=== PATIENT | male | born 1975 | race Caucasian/White ===

== ENCOUNTER 2023-12-01 17:19 | Emergency (ER) | payer OTHER, MEDICARE, MEDICAID ==
[~2023-12-01] VITALS: Ht 185.4 cm; Wt 70.0 kg
[2023-12-01 18:15] LABS: Basophils # (auto) 0 10 ^3/uL (0-0.2); Basophils % (auto) 0.5 % (0.0-2.0); Eosinophils # (auto) 0.1 10 ^3/uL (0-0.8); Eosinophils % (auto) 1.9 % (0.0-7.0); Hematocrit 37.1 % (41.0-53.0); Hemoglobin 12.3 g/dL (13.5-17.5); Lymphocytes # (auto) 1.6 10 ^3/uL (0.4-5.4); Lymphocytes % (auto) 22.5 % (10.0-50.0); Mean Corpuscular Hemoglobin 31.1 pg (28.0-32.0); Mean Corpuscular Hgb Conc. 33.1 g/dL (32.0-36.0); Mean Corpuscular Volume 94.1 fL (80.0-100.0); Monocytes # (auto) 0.4 10 ^3/uL (0-1.3); Monocytes % (auto) 5.7 % (0.0-12.0); Neutrophils # (auto) 4.8 10 ^3/uL (1.6-8.6); Neutrophils % (auto) 69.4 % (37.0-80.0); Red Blood Cells 3.94 10^6/uL (4.5-5.90); Red Cell Distribution Width 14.1 % (11.8-14.3); White Blood Cell 6.9 10^3/uL (4.4-10.8)
[2023-12-01 18:29] LABS: Alanine Aminotransferase 21 U/L (7-40); Albumin 4.2 g/dL (3.2-4.8); Alkaline Phosphatase 111 U/L (46-116); Anion Gap 4 (5-15); Aspartate Aminotransferase 16 U/L (13-40); BUN/Creatinine Ratio 18.1 (10.0-20.0); Bilirubin, Total 0.4 mg/dL (0.2-1.0); Blood Urea Nitrogen 15 mg/dL (9-23); Calcium 9.7 mg/dL (8.7-10.4); Carbon Dioxide 29 mmol/L (20-30); Chloride 108 mmol/L (98-107); Glucose 116 mg/dL (74-106); Potassium 4.2 mmol/L (3.5-5.1); Sodium 141 mmol/L (136-145); Total Protein 6.8 g/dL (5.7-8.2)
[2023-12-01] MEDS ORDERED: ZOFR4T PO (20:47)
[2023-12-01 22:00] LABS: Urine Bacteria MANY /hpf (None Seen); Urine Blood 1+ /uL (Negative); Urine Clarity HAZY (Clear); Urine Color Yellow (Yellow); Urine Mucus MANY (None Seen); Urine Protein, UAD 2+ (Negative); Urine Specific Gravity 1.022 (1.001-1.035); Urine WBC 58 /hpf (0 - 3); Urine pH 6.5 (5.0-8.0)
[2023-12-01] MEDS ORDERED: CEPH500C PO (22:37)
[2023-12-02] MEDS: MORPHINE SULFATE 4 MG/ML SYR/VIAL IM ONE ×2 (00:34→10:48)
[2023-12-02] MEDS: ONDANSETRON ODT 4 MG TAB PO ONE ×2 (00:34→10:30)
[2023-12-02] MEDS: cefTRIAXone SOD 1,000 MG VL ONE (00:34)
[2023-12-02] MEDS: cefTRIAXone W LIDOCAINE 1 GM IM IM ONE (00:34)
[2023-12-02] MEDS: MORPHINE SULFATE 4 MG/ML SYR/VIAL ONE (10:47)
[2023-12-02] MEDS: ONDANSETRON HCL 4 MG/2 ML VIAL IM ONE (11:17)
[2023-12-02] MEDS: ONDANSETRON HCL 4 MG/2 ML VIAL ONE (11:18)
[2023-12-02 12:49] VITALS: BP 117/75; PULSE 68; RESP 16; TEMP 97.6; O2SAT 100
== END 2023-12-02 01:05 | disposition home or self-care (01) ==
LOC: EDBD 17:19 → ER 17:19
DX: R42 Dizziness and giddiness (principal); R51.9 Headache, unspecified; R11.10 Vomiting, unspecified; E11.9 Type 2 diabetes mellitus without complications
CPT/HCPCS: 36415; 70450; 80053; 81001; 85025; 99285; J0696; J2270; J2405; Q0162; 96372

== ENCOUNTER 2023-12-23 14:14 | Emergency (ER) | payer OTHER, MEDICARE, MEDICAID ==
[~2023-12-23 14:14] MED LIST: CEPH500C PO; ZOFR4T PO
[2023-12-23 16:09] LABS: Basophils # (auto) 0 10 ^3/uL (0-0.2); Basophils % (auto) 0.2 % (0.0-2.0); Eosinophils # (auto) 0.1 10 ^3/uL (0-0.8); Eosinophils % (auto) 0.8 % (0.0-7.0); Hematocrit 36.5 % (41.0-53.0); Hemoglobin 12.4 g/dL (13.5-17.5); Lymphocytes # (auto) 1.3 10 ^3/uL (0.4-5.4); Lymphocytes % (auto) 15.6 % (10.0-50.0); Mean Corpuscular Hgb Conc. 33.9 g/dL (32.0-36.0); Mean Corpuscular Volume 94.4 fL (80.0-100.0); Monocytes # (auto) 0.3 10 ^3/uL (0-1.3); Monocytes % (auto) 4.2 % (0.0-12.0); Neutrophils # (auto) 6.5 10 ^3/uL (1.6-8.6); Neutrophils % (auto) 79.2 % (37.0-80.0); Red Blood Cells 3.87 10^6/uL (4.5-5.90); Red Cell Distribution Width 13.7 % (11.8-14.3); White Blood Cell 8.2 10^3/uL (4.4-10.8)
[2023-12-23 16:29] LABS: Alanine Aminotransferase 21 U/L (7-40); Alkaline Phosphatase 118 U/L (46-116); Anion Gap 2 (5-15); Aspartate Aminotransferase 11 U/L (13-40); BUN/Creatinine Ratio 21.3 (10.0-20.0); Blood Urea Nitrogen 16 mg/dL (9-23); Calcium 9.3 mg/dL (8.7-10.4); Carbon Dioxide 30 mmol/L (20-30); Chloride 108 mmol/L (98-107); Glucose 143 mg/dL (74-106); Potassium 3.9 mmol/L (3.5-5.1); Sodium 140 mmol/L (136-145)
[2023-12-23 16:30] LABS: Bilirubin, Total 0.5 mg/dL (0.2-1.0); Total Protein 6.6 g/dL (5.7-8.2)
[2023-12-23 16:31] LABS: INR 0.94 (0.9-1.15); Partial Thromboplastin Time 34.7 SEC (24.5-34.5); Prothrombin Time 9.9 sec (9.3-11.8)
[2023-12-23 19:25] VITALS: PULSE 80; RESP 14; O2SAT 97
[2023-12-23] MEDS: ONDANSETRON HCL 4 MG/2 ML VIAL IV ONE (19:43)
[2023-12-23] MEDS: MORPHINE SULFATE 4 MG/ML SYR/VIAL IV ONE (19:44)
[2023-12-23 19:56] LABS: Urine Bacteria FEW /hpf (None Seen); Urine Blood 2+ /uL (Negative); Urine Clarity Clear (Clear); Urine Color Colorless (Yellow); Urine Mucus FEW (None Seen); Urine Protein, UAD 3+ (Negative); Urine Specific Gravity 1.015 (1.001-1.035); Urine Urobilinogen Normal (Negative); Urine WBC 14 /hpf (0 - 3); Urine pH 6.5 (5.0-8.0)
[2023-12-23] MEDS ORDERED: NITR-87 PO (20:13)
[2023-12-23] MEDS: cefTRIAXone 1GM/50ML D5W 50 ML IV ONE (22:39)
[2023-12-24 07:22] VITALS: PULSE 60; RESP 14; O2SAT 97
[2023-12-24 08:00] VITALS: TEMP 97.5
[2023-12-24 10:00] VITALS: BP 134/76; PULSE 72; RESP 12; O2SAT 95
== END 2023-12-24 11:34 | disposition home or self-care (01) ==
LOC: EDBD 14:14 → ER 14:14
DX: R51.9 Headache, unspecified (principal); N39.0 Urinary tract infection, site not specified; E11.9 Type 2 diabetes mellitus without complications; K21.9 Gastro-esophageal reflux disease without esophagitis; I10 Essential (primary) hypertension; Z79.899 Other long term (current) drug therapy; Z79.01 Long term (current) use of anticoagulants
CPT/HCPCS: 36415; 70450; 80053; 81001; 85025; 85610; 85730; 87086; 96365; 96375; 99285; J0696; J2270; J2405; 87088; 87186; 93005

== ENCOUNTER 2024-03-03 12:55 | Emergency (ER) | payer OTHER, MEDICAID ==
[~2024-03-03] VITALS: Ht 188 cm; Wt 102.2 kg
[~2024-03-03 12:55] MED LIST changes: +NITR-87 PO
[2024-03-03 14:00] VITALS: PULSE 99; RESP 16; O2SAT 98
[2024-03-03 15:25] LABS: Basophils # (auto) 0 10 ^3/uL (0-0.2); Basophils % (auto) 0.2 % (0.0-2.0); Eosinophils # (auto) 0.1 10 ^3/uL (0-0.8); Eosinophils % (auto) 0.8 % (0.0-7.0); Hematocrit 37.7 % (41.0-53.0); Hemoglobin 12.9 g/dL (13.5-17.5); Lymphocytes # (auto) 1.3 10 ^3/uL (0.4-5.4); Lymphocytes % (auto) 10.9 % (10.0-50.0); Mean Corpuscular Hemoglobin 31.8 pg (28.0-32.0); Mean Corpuscular Hgb Conc. 34.2 g/dL (32.0-36.0); Mean Corpuscular Volume 92.8 fL (80.0-100.0); Monocytes # (auto) 0.5 10 ^3/uL (0-1.3); Monocytes % (auto) 4.2 % (0.0-12.0); Neutrophils # (auto) 9.9 10 ^3/uL (1.6-8.6); Neutrophils % (auto) 83.9 % (37.0-80.0); Red Blood Cells 4.06 10^6/uL (4.5-5.90); Red Cell Distribution Width 12.8 % (11.8-14.3); White Blood Cell 11.8 10^3/uL (4.4-10.8)
[2024-03-03 15:44] LABS: Alanine Aminotransferase 17 U/L (7-40); Albumin 4.1 g/dL (3.2-4.8); Alkaline Phosphatase 149 U/L (46-116); Anion Gap 4 (5-15); Aspartate Aminotransferase 10 U/L (13-40); BUN/Creatinine Ratio 18.9 (10.0-20.0); Bilirubin, Total 0.4 mg/dL (0.2-1.0); Blood Urea Nitrogen 18 mg/dL (9-23); Calcium 9.9 mg/dL (8.5-10.1); Carbon Dioxide 31 mmol/L (20-30); Chloride 104 mmol/L (98-107); Glucose 231 mg/dL (74-106); Potassium 3.7 mmol/L (3.5-5.1); Sodium 139 mmol/L (136-145); Total Protein 6.8 g/dL (5.7-8.2)
[2024-03-03] MEDS: ACETAMINOPHEN 325 MG TAB PO ONE (16:10)
[2024-03-03] MEDS: SODIUM CHLORIDE 0.9% 1,000 ML IV ONE (16:14)
[2024-03-03] MEDS: fentaNYL CITRATE 100 MCG/2 ML VL IV ONE ×2 (16:29→18:05)
[2024-03-03] MEDS: ONDANSETRON HCL 4 MG/2 ML VIAL IV ONE (16:29)
[2024-03-03 16:57] LABS: Lipase 33 U/L (12-53)
[2024-03-03] MEDS: GOLYTELY 4L KIT PO ONE (18:28)
[2024-03-03 19:30] VITALS: PULSE 91; RESP 16; TEMP 98.8; O2SAT 99
[2024-03-03 20:54] VITALS: BP 125/86; PULSE 92; RESP 16; O2SAT 95
== END 2024-03-03 20:54 | disposition home or self-care (01) ==
LOC: EDBD 12:55 → ER 12:55
DX: K56.41 Fecal impaction (principal); E11.9 Type 2 diabetes mellitus without complications; I10 Essential (primary) hypertension; K21.9 Gastro-esophageal reflux disease without esophagitis; I25.2 Old myocardial infarction; Z98.61 Coronary angioplasty status
CPT/HCPCS: 36415; 74176; 80053; 83605; 83690; 84484; 85025; 96361; 96374; 96375; 99285; J2405; J3010; J7030

== ENCOUNTER 2025-06-27 18:40 | Emergency (ER) | payer OTHER, MEDICAID ==
[~2025-06-27] VITALS: Ht 188 cm; Wt 136.3 kg
[2025-06-27 18:50] VITALS: PULSE 65; RESP 16; O2SAT 97
[2025-06-27] MEDS: SODIUM CHLORIDE 0.9% 1,000 ML IVB ONE (19:00)
--- NOTE | 2025-06-27 19:04 | ED.PDOC ---
History of Present Illness HPI Comments 49-year-old male who came to ER via EMS for headaches. Patient has history of hypertension and diabetes and CO. Patient has a severe traumatic brain injury September 2022, which the patient underwent craniotomy, LAPEL STITCHER shunt, tracheostomy, G- tube insertion, suprapubic catheter insertion. The patient is completely bedbound. As of 3:00 a.m. today, patient has been having right-sided headaches, sharp, 8/10 intensity, associated nausea and vomiting 4x. Patient states when he had this kind of headache before, it was due to an infection at his catheter. 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 Allergies: Coded Allergies: NO KNOWN ALLERGIES (Unverified , 12/01/23) Home Meds Active Scripts Nitrofurantoin Monohydrate Mac (Macrobid) 100 Mg Cap, 100 MG PO BID for 10 Days, #20 CAP Prov:STEFANIE WELLS MD 12/23/23 Cephalexin Monohydrate (Cephalexin) 500 Mg Cap, 1 CAP PO TID for 10 Days, #30 CAP Prov:TAVARES TAMAYO DO 12/01/23 Ondansetron Odt 4MG Tab (ZOFRAN PO) 4 Mg Tb, 4 MG PO Q6HP PRN, #20 TAB ODT TAB-DISSOLVE IN MOUTH, THEN SWALLOW Prov:TAVARES TAMAYO DO 12/01/23 Information Source: Patient, Emergency Med Personnel Mode of Arrival: EMS Severity: Moderate Timing: Hours Duration: Since onset Prehospital treatment: Treatment (Zofran) Past Medical History PAST MEDICAL HISTORY: DM, GERD, HTN, CO Past Medical History (Other): Traumatic brain injury September 2022 Surgical History: PTCA Surgical History (Other): Tracheostomy, G-tube, craniotomy, LAPEL STITCHER shunt Family History Family History: Reviewed,noncontributory to illness Social History Smoker: Non-Smoker Alcohol: Denies ETOH Use Drugs: Denies Drug Use Lives In: Home Constitutional: denies: chills, diaphoresis, fatigue, fever, malaise, sweats, weakness, others EENTM: denies: blurred vision, double vision, ear bleeding, ear discharge, ear drainage, ear pain, ear ringing, eye pain, eye redness, hearing loss, mouth pain, mouth swelling, nasal discharge, nose bleeding, nose congestion, nose pain, photophobia, tearing, throat pain, throat swelling, voice changes, others Respiratory: denies: cough, hemoptysis, orthopnea, SOB at rest, shortness of breath, SOB with excertion, stridor, wheezing, others Cardiovascular: denies: chest pain, dizzy spells, diaphoresis, Dyspnea on exertion, edema, irregular heart beat, left arm pain, lightheadedness, palpitations, PND, syncope, others Gastrointestinal: reports: nausea, vomiting; denies: abdomen distended, abdominal pain, blood streaked bowels, constipated, diarrhea, dysphagia, difficulty swallowing, hematemesis, melena, poor appetite, poor fluid intake, rectal bleeding, rectal pain, others Genitourinary: denies: burning, dysuria, flank pain, frequency, hematuria, incontinence, penile discharge, penile sore, pain, testicle pain, testicle swelling, urgency, others Neurological: reports: headache; denies: dizziness, fainting, left sided numbness, left sided weakness, numbness, paresthesia, pre-existing deficit, right sided numbness, right sided weakness, seizure, speech problems, tingling, tremors, weakness, others Musculoskeletal: denies: back pain, gout, joint pain, joint swelling, muscle pain, muscle stiffness, neck pain, others Integumetry: denies: bruises, change in color, change in hair/nails, dryness, laceration, lesions, lumps, rash, wounds, others Allergic/Immunocompromised: denies: Difficulty Healing, Frequent Infections, H tacos, Itching, others Hematologic/Lymphatic: denies: anemia, blood clots, easy bleeding, easy bruising, swollen glands, others Endocrine: denies: excessive hunger, excessive sweating, excessive thirst, excessive urination, flushing, intolerance to cold, intolerance to heat, unexplained weight gain, unexplained weight loss, others Psychiatric: denies: anxiety, bipolar disorder, depression, hopeless, panic disorder, schizophrenia, sleepless, suicidal, others Physical Exam General Appearance: No Apparent Distress, Normal HEENT: Normal ENT Inspection, Pharynx Normal, TMs Normal, Other (Craniotomy scar) Neck: Full Range of Motion, Non-Tender, Normal, Normal Inspection, Other (Tracheostomy scar) Respiratory: Chest Non-Tender, Lungs Clear, No Accessory Muscle Use, No Respiratory Distress, Normal Breath Sounds Cardiovascular: No Edema, No JVD, No Murmur, No Gallop, Normal Peripheral Pulses, Regular Rate/Rhythm Breast Exam: Deferred Gastrointestinal: No Organomegaly, Non Tender, No Pulsatile Mass, Normal Bowel Sounds, Soft, Other (Suprapubic catheter) Genitalia: Deferred Pelvic: Deferred Rectal: Deferred Extremities: No calf tenderness, Normal capillary refill, Normal inspection, Normal range of motion, Non-tender, No pedal edema Musculoskeletal : Apperance: Normal Neurologic: Alert, personal lines insurance agent II-XII nml as Tested, No Motor Deficits, Normal Affect, Normal Mood, No Sensory Deficits Cerebellar Function: Normal Reflexes: Normal Skin: Dry, Normal Color, Warm Lymphatic: No Adenopathy Was a procedure done? Was a procedure done?: No Differential Dx Considerations may include: Anemia, electrolyte imbalance, CVA, headaches, traumatic brain injury, urinary tract infection, sepsis X-Ray, Labs, Meds, VS Vital Signs Date Time Temp Pulse Resp B/P (MAP) Pulse Ox O2 Delivery O2 Flow Rate FiO2 06/27/25 22:45 69 16 115/66 (82) 97 06/27/25 21:23 70 16 95 Room Air* 0 21 06/27/25 20:42 98.2 70 16 141/72 (95) 97 98.2 06/27/25 20:02 63 10 112/73 06/27/25 19:45 66 12 103/84 06/27/25 18:50 65 16 97 Room Air* 0 21 06/27/25 18:50 98.5 65 16 147/91 (109) 97 98.5 06/27/25 18:43 98.5 65 16 147/91 97 98.5 Lab Test 06/27/25 23:30 06/27/25 20:23 06/27/25 19:18 Range/Units Urine Color Colorless Yellow Urine Clarity Turbid H Clear Urine pH 6.5 5.0-9.0 Urine Specific [place] 1.022 1.001-1.035 Urine Protein 2+ H Negative Urine Ketones Negative Negative Urine Blood 2+ H Negative /uL Urine Nitrite 2+ H Negative Urine Bilirubin Negative Negative Urine Urobilinogen Normal Negative mg/dL Urine Leukocyte Esterase 2+ Negative /uL Urine RBC 59 0 - 3 /hpf Urine Microscopic WBC 496 H 0-3 /HPF Urine Squamous Epithelial Cells None seen <5 /hpf Urine Bacteria Few H None Seen /hpf Urine Mucus Few None Seen Urine Glucose Normal Normal mg/dL Sodium Level 138 135 L 136-145 mmol/L Potassium Level 5.7 *H 5.8 *H 3.5-5.1 mmol/L Chloride Level 106 105 98-107 mmol/L Carbon Dioxide Level 24 23 20-31 mmol/L Anion Gap 8 7 5-15 Blood Urea Nitrogen 15 13 9-23 mg/dL Creatinine 1.17 1.21 0.700-1.30 mg/dL Glomerular Filtration Rate Calc 76 73 >90 mL/min BUN/Creatinine Ratio 12.8 10.7 10.0-20.0 Serum Glucose 134 H 144 H 74-106 mg/dL Calcium Level 8.9 9.2 8.7-10.4 mg/dL White Blood Count 6.8 4.4-10.8 10^3/uL Red Blood Count 4.22 L 4.5-5.90 10^6/uL Hemoglobin 13.0 L 13.5-17.5 g/dL Hematocrit 38.7 L 41.0-53.0 % Mean Corpuscular Volume 91.7 80.0-100.0 fL Mean Corpuscular Hemoglobin 30.9 28.0-32.0 pg Mean Corpuscular Hemoglobin Concent 33.7 32.0-36.0 g/dL Red Cell Distribution Width 14.1 11.8-14.3 % Platelet Count 272 140-450 10^3/uL Mean Platelet Volume 8.2 6.9-10.8 fL Neutrophils (%) (Auto) 74.0 37.0-80.0 % Lymphocytes (%) (Auto) 18.0 10.0-50.0 % Monocytes (%) (Auto) 5.1 0.0-12.0 % Eosinophils (%) (Auto) 2.0 0.0-7.0 % Basophils (%) (Auto) 0.9 0.0-2.0 % Neutrophils # (Auto) 5.0 1.6-8.6 10 ^3/uL Lymphocytes # (Auto) 1.2 0.4-5.4 10 ^3/uL Monocytes # (Auto) 0.3 0-1.3 10 ^3/uL Eosinophils # (Auto) 0.1 0-0.8 10 ^3/uL Basophils # (Auto) 0.1 0-0.2 10 ^3/uL Nucleated Red Blood Cells 0.1 % Lactic Acid Level 0.8 0.4-2.0 mmol/L Magnesium Level 1.8 1.6-2.6 mg/dL Total Bilirubin 0.3 0.2-1.0 mg/dL Aspartate Amino Transferase (AST) 16 13-40 U/L Alanine Aminotransferase (ALT) 16 7-40 U/L Alkaline Phosphatase 133 H 46-116 U/L Total Protein 7.3 5.7-8.2 g/dL Albumin 4.2 3.2-4.8 g/dL Current Medications Medications (Trade) Dose Ordered Sig/Ventura Route Start Time Stop Time Status Last Admin Ondansetron HCl (Zofran) 4 mg ONCE ONCE IV 06/27/25 19:00 06/27/25 19:01 DC 06/27/25 19:41 Sodium Chloride 1,000 ml @ 1,000 mls/hr Q1H ONCE IVB 06/27/25 19:00 06/27/25 19:59 DC 06/27/25 19:00 Morphine Sulfate 4 mg ONCE ONCE IV 06/27/25 19:00 06/27/25 19:01 DC 06/27/25 19:45 Metoclopramide HCl (Reglan Injection) 10 mg ONCE ONCE IV 06/27/25 20:30 06/27/25 20:31 DC 06/27/25 20:34 Time of 1ST Reevaluation: 18:54 Reevaluation 1ST: Unchanged Patient Education/Counseling: Diagnosis, Treatment Family Education/Counseling: No Family Present SEPSIS Sepsis Screen Physician Orders Blood Culture (06/27/25 18:52) Chest Portable (06/27/25 18:52) Head Without Contrast (06/27/25 18:52) Imaging Transfer Request (06/27/25 22:58) Insulin R (Human) (Insulin R) (06/28/25 00:45) Zosyn Extended Infusion (06/28/25 00:45) Dextrose 50% Syringe (06/28/25 00:45) Vital Signs Date Time Temp Pulse Resp B/P (MAP) Pulse Ox O2 Delivery O2 Flow Rate FiO2 06/27/25 22:45 69 16 115/66 (82) 97 06/27/25 21:23 70 16 95 Room Air* 0 21 06/27/25 20:42 98.2 70 16 141/72 (95) 97 98.2 06/27/25 20:02 63 10 112/73 06/27/25 19:45 66 12 103/84 06/27/25 18:50 65 16 97 Room Air* 0 21 06/27/25 18:50 98.5 65 16 147/91 (109) 97 98.5 06/27/25 18:43 98.5 65 16 147/91 97 98.5 Laboratory Tests Test 06/27/25 19:18 Lactic Acid Level 0.8 mmol/L (0.4-2.0) White Blood Count 6.8 10^3/uL (4.4-10.8) Medications Medications Dose Ordered Sig/Ventura Route Start Time Stop Time Status Last Admin Dose Admin Metoclopramide HCl 10 mg ONCE ONCE IV 06/27/25 20:30 06/27/25 20:31 DC 06/27/25 20:34 Morphine Sulfate 4 mg ONCE ONCE IV 06/27/25 19:00 06/27/25 19:01 DC 06/27/25 19:45 Ondansetron HCl 4 mg ONCE ONCE IV 06/27/25 19:00 06/27/25 19:01 DC 06/27/25 19:41 Sodium Chloride 1,000 ml @ 1,000 mls/hr Q1H ONCE IVB 06/27/25 19:00 06/27/25 19:59 DC 06/27/25 19:00 Departure 1 Departure Time of Disposition: 00:40 Impression: Primary Impression: Cephalgia Additional Impressions: TBI (traumatic brain injury) LAPEL STITCHER (ventriculoperitoneal) shunt status Intractable headache UTI (urinary tract infection) Disposition: 02 SHORT TERM HOSPITAL Condition: Guarded Discharged With: Self Comments 49-year-old male with a history of severe TBI status post craniotomy and LAPEL STITCHER shunt now with intractable headache. He has a UTI on lab review. Also the hyperkalemia of unknown etiology with potassium of 5.8. Patient was given IV fluids and IV Zosyn antibiotics. I ordered Lokelma but the patient declined it. I ordered D50 and insulin to help with the hyperkalemia. I contacted [facility] and the patient was accepted for transfer for higher level of care so that the patient get get neurology and neurosurgery evaluation. Accepting physician was Dr. Gottlieb Critical Care Note Critical Care Time?: Yes (35 min-critical care time only) Critical care comment: Total critical care time: Approximately 36 minutes Due to a high probability of clinically significant, life threatening deterioration, the patient required my highest level of preparedness to intervene emergently and I personally spent this critical care time directly and personally managing the patient. This critical care time included obtaining a history; examining the patient; pulse oximetry; ordering and review of studies; arranging urgent treatment with development of a management plan; evaluation of patient's response to treatment; frequent reassessment; and, discussions with other providers. This critical care time was performed to assess and manage the high probability of imminent, life-threatening deterioration that could result in multi-organ failure. It was exclusive of separately billable procedures and treating other patients. Stability Stability form required: No Heart Score Heart Score: Heart Score Response (Comments) Value History N/A 0 EKG N/A 0 Age N/A 0 Risk Factors N/A 0 Troponin N/A 0 Total 0 I personally scribed for GOOD PEARCE MD ([email or web address]) on 06/27/25 at 19:04. Electronically submitted by Luis Alberto Palumbo ([email or web address]). GOOD PEARCE MD Jun 27, 2025 19:04
--- NOTE | 2025-06-27 19:22 | DVH ---
CHEST RADIOGRAPH Indication: SOB Technique: Single frontal view of the chest was obtained Comparison: None FINDINGS: Lines and Tubes: Appear to be radiopaque coils over the right cervical soft tissues. Correlate with m edical or clinical history. Lungs: No focal consolidation. Pleura: No effusion. No pneumothorax. Cardiomediastinal contours: Unremarkable Bones: No acute osseous abnormality. IMPRESSION: 1. No acute cardiopulmonary disease. 2. Right-sided foreign body in the cervical soft tissues.
[2025-06-27 19:38] LABS: Hematocrit 38.7 % (41.0-53.0); Hemoglobin 13.0 g/dL (13.5-17.5); Mean Corpuscular Hemoglobin 30.9 pg (28.0-32.0); Mean Corpuscular Volume 91.7 fL (80.0-100.0); Nucleated Red Blood Cells % 0.1 %
[2025-06-27] MEDS: ONDANSETRON HCL 4 MG/2 ML VIAL IV ONE (19:41)
[2025-06-27] MEDS: MORPHINE SULFATE 4 MG/ML SYR/VIAL IV ONE (19:45)
[2025-06-27 20:06] LABS: Alanine Aminotransferase 16 U/L (7-40); Albumin 4.2 g/dL (3.2-4.8); Anion Gap 7 (5-15); BUN/Creatinine Ratio 10.7 (10.0-20.0); Blood Urea Nitrogen 13 mg/dL (9-23); Calcium 9.2 mg/dL (8.7-10.4); Carbon Dioxide 23 mmol/L (20-31); Chloride 105 mmol/L (98-107); Magnesium 1.8 mg/dL (1.6-2.6); Total Protein 7.3 g/dL (5.7-8.2)
[2025-06-27 20:07] LABS: Bilirubin, Total 0.3 mg/dL (0.2-1.0)
[2025-06-27 20:13] LABS: Alkaline Phosphatase 133 U/L (46-116); Glucose 144 mg/dL (74-106); Sodium 135 mmol/L (136-145)
[2025-06-27 20:14] LABS: Potassium 5.8 mmol/L (3.5-5.1)
[2025-06-27] MEDS: METOCLOPRAMIDE HCL 5MG/ml INJ 2ml VIAL IV ONE (20:34)
[2025-06-27 20:59] LABS: Chloride 106 mmol/L (98-107); Sodium 138 mmol/L (136-145)
[2025-06-27 21:00] LABS: Anion Gap 8 (5-15); Calcium 8.9 mg/dL (8.7-10.4); Carbon Dioxide 24 mmol/L (20-31)
[2025-06-27 21:05] LABS: BUN/Creatinine Ratio 12.8 (10.0-20.0); Blood Urea Nitrogen 15 mg/dL (9-23)
[2025-06-27 21:06] LABS: Glucose 134 mg/dL (74-106)
[2025-06-27 21:07] LABS: Potassium 5.7 mmol/L (3.5-5.1)
[2025-06-27 21:23] VITALS: PULSE 70; RESP 16; O2SAT 95
--- NOTE | 2025-06-27 21:44 | DVH ---
EXAM: CT HEAD WITHOUT CONTRAST INDICATION: severe headache s/p TBI and shunt TECHNIQUE: CT of the head without intravenous contrast. Radiation Dose Information: CT Dose: CTDI volume is 66.05 mGy. Dose-length product is 1058.54 mGy*cm The dose indicators for CT are the volume Computed Tomography (CT) Dose Index (CTDIvol) and the Dose Length Product (DLP), and are measured in units of mGy and mGy-cm, respectively. These indicators are not patient dose, but values generated from the CT scanner acquisition factors. The report includes radiation exposure data for exposures received during this examination. COMPARISON: CT HEAD WITHOUT CONTRAST on DOS: 12/23/23, CT HEAD WITHOUT CONTRAST on DOS: 12/01/23 FINDINGS: There is no evidence of acute intracranial hemorrhage, extra-axial collection, mass effect, midline s hift, herniation or hydrocephalus. Evidence for 3 areas of old white matter infarct stable and unchanged from 12/23/2023. The ventricles, sulci and cisterns are age appropriate. Ventricular peritoneal shunt tube in place un changed. Ventricular size unchanged The wilks-white differentiation is intact. Patchy periventricular and subcortical white matter hypoattenuation is nonspecific but may be related to small vessel ischemic disease. The visualized paranasal sinuses and mastoid air cells are clear. The surrounding soft tissues and osseous structures are unremarkable. IMPRESSION: 1. No significant change from 12/23/2023. 2. Stable areas deep white matter infarct. 3. Stable ventriculoperitoneal shunt tube and ventricular size.
[2025-06-27] MEDS: SODIUM ZIRCONIUM CYCL 10 GM PAK PO ONE ×2 (22:06→22:07)
[2025-06-27 23:58] LABS: Urine Protein, UAD 2+ (Negative)
[2025-06-28] MEDS: PIPERACILLIN-TAZOB 3.375GM 100 ML IV ONE (00:45)
[2025-06-28] MEDS: DEXTROSE (50%) 50ML SYRG IV ONE (01:21)
[2025-06-28] MEDS: InsuLIN REG 1unit/0.01ml Soln (100units/ml) IV ONE (01:23)
[2025-06-28 02:57] VITALS: BP 101/61; PULSE 71; RESP 12; TEMP 97.7; O2SAT 96
== END 2025-06-28 03:24 | disposition short-term general hospital (02) ==
LOC: ER 18:40 → EDBD 18:40 → EDUNIT# 18:40 → ER 06-28 03:24
DX: S06.9X0A Unspecified intracranial injury without loss of consciousness, initial encounter (principal); R51.9 Headache, unspecified; N39.0 Urinary tract infection, site not specified; E11.9 Type 2 diabetes mellitus without complications; I10 Essential (primary) hypertension; I25.2 Old myocardial infarction; Z98.890 Other specified postprocedural states; Z87.820 Personal history of traumatic brain injury; Z43.1 Encounter for attention to gastrostomy; Z74.01 Bed confinement status; Z98.2 Presence of cerebrospinal fluid drainage device; X58.XXXA Exposure to other specified factors, initial encounter; Y93.89 Activity, other specified; Y92.89 Other specified places as the place of occurrence of the external cause; Y99.8 Other external cause status
CPT/HCPCS: 36415; 70450; 71045; 80048; 80053; 81001; 82947; 83605; 83735; 85025; 87040; 96361; 96365; 96375; 99291; J1815; J2270; J2405; J2543; J2765; J7030; J7042; 82962